=== PATIENT | male | born 1965 | race Caucasian/White ===

== ENCOUNTER 2019-01-23 05:59 | Emergency (ER) | payer MEDICARE, OTHER ==
[~2019-01-23] VITALS: Ht 185.4 cm; Wt 102.3 kg
[2019-01-23 06:01] VITALS: BP 147/96
[2019-01-23] MEDS ORDERED: diphenhydrAMINE 50 mg/ml inj IV ONE (06:15)
[2019-01-23] MEDS ORDERED: ketorolac trometh. 30mg/ml inj. IV ONE (06:15)
[2019-01-23] MEDS ORDERED: metoclopramide 5 mg/ml inj IV ONE (06:15)
== END 2019-01-23 09:12 | disposition home or self-care (01) ==
LOC: ER 05:59
DX: G43.909 Migraine, unspecified, not intractable, without status migrainosus (principal); Z88.0 Allergy status to penicillin
CPT/HCPCS: 96374; 96375; 99283; J1200; J1885; J2765

== ENCOUNTER 2020-09-30 17:29 | Emergency (ER) | payer MEDICARE, OTHER ==
[~2020-09-30] VITALS: Ht 188 cm; Wt 102.3 kg
[2020-09-30] MEDS ORDERED: PRED20TA PO (18:29)
[2020-09-30] MEDS ORDERED: ketorolac trometh inj. 60 MG/2 ML VIAL IM ONE (18:30)
[2020-09-30] MEDS ORDERED: CYCL-1 PO (18:57)
[2020-09-30 19:42] VITALS: BP 120/68
== END 2020-09-30 19:44 | disposition home or self-care (01) ==
LOC: ER 17:30
DX: G89.29 Other chronic pain (principal); M54.5 Low back pain; G43.909 Migraine, unspecified, not intractable, without status migrainosus; Z98.890 Other specified postprocedural states; Z88.0 Allergy status to penicillin; Z79.899 Other long term (current) drug therapy
CPT/HCPCS: 96372; 99283; J1885

== ENCOUNTER 2020-10-06 10:03 | Emergency (ER) | payer MEDICARE, OTHER ==
[~2020-10-06] VITALS: Ht 188 cm; Wt 102.3 kg
[~2020-10-06 10:03] MED LIST: CYCL-1 PO; PRED20TA PO
[2020-10-06 10:18] VITALS: BP 146/94
[2020-10-06] MEDS ORDERED: ketorolac trometh inj. 60 MG/2 ML VIAL IM ONE (11:40)
[2020-10-06] MEDS ORDERED: morphine 4 MG/ML inj SYRINge IM ONE (11:40)
[2020-10-06] MEDS ORDERED: ORPH100T2 PO (11:54)
[2020-10-06] MEDS ORDERED: OXYC-150 PO (11:54)
[2020-10-06] MEDS ORDERED: orphenadrine citrate 60mg/2ml inj. IM ONE (12:35)
[2020-10-06] MEDS ORDERED: DIAZ-351 PO (23:52)
[2020-10-07] MEDS ORDERED: NO HOME MEDS (18:24)
[2020-10-07] MEDS ORDERED: BACL-11 PO (20:17)
[2020-10-07] MEDS ORDERED: HYDR-3972 PO (20:17)
== END 2020-10-06 12:56 | disposition home or self-care (01) ==
LOC: ER 10:04
DX: M54.5 Low back pain (principal); G89.29 Other chronic pain; G43.909 Migraine, unspecified, not intractable, without status migrainosus; Z98.890 Other specified postprocedural states; Z88.0 Allergy status to penicillin; Z79.899 Other long term (current) drug therapy
CPT/HCPCS: 96372; 99284; J1885; J2270; J2360

== ENCOUNTER 2020-10-06 20:09 | Emergency (ER) | payer OTHER, MEDICARE ==
[~2020-10-06] VITALS: Ht 188 cm; Wt 102.5 kg
[~2020-10-06 20:09] MED LIST changes: +ORPH100T2 PO; +OXYC-150 PO
[2020-10-06 20:20] VITALS: BP 134/74
--- NOTE | 2020-10-06 21:04 | NUR ---
pt c/o lower back pain x1 week, pain has increased, difficulty ambulating due to pain, was here earlier today, [facility] will not [facility] given to pt, [facility], no loss of bowel or urine, h/o L3 to S1 fusion, waiting to be evaluated by provider
[2020-10-06] MEDS ORDERED: ketorolac trometh. 30mg/ml inj. IM ONE (22:05)
[2020-10-06] MEDS ORDERED: LIDOcaine 1% 30ml preserv. free vial IJ ONE (22:05)
[2020-10-06] MEDS ORDERED: diazepam 5mg tablet PO ONE (22:50)
[2020-10-06] MEDS ORDERED: DIAZ-351 PO (23:52)
[2020-10-07] MEDS ORDERED: NO HOME MEDS (18:24)
[2020-10-07] MEDS ORDERED: BACL-11 PO (20:17)
[2020-10-07] MEDS ORDERED: HYDR-3972 PO (20:17)
== END 2020-10-07 06:05 | disposition home or self-care (01) ==
LOC: ER 20:10
DX: S39.012A Strain of muscle, fascia and tendon of lower back, initial encounter (principal); G89.29 Other chronic pain; M62.830 Muscle spasm of back; G43.909 Migraine, unspecified, not intractable, without status migrainosus; Z98.890 Other specified postprocedural states; Z88.0 Allergy status to penicillin; Z79.899 Other long term (current) drug therapy; X58.XXXA Exposure to other specified factors, initial encounter; Y93.89 Activity, other specified; Y92.89 Other specified places as the place of occurrence of the external cause; Y99.8 Other external cause status
CPT/HCPCS: 20552; 74176; 96372; 99284; J1885; J2001

== ENCOUNTER 2020-10-13 21:03 | Emergency (ER) | payer OTHER, MEDICARE ==
[~2020-10-13] VITALS: Ht 188 cm; Wt 102.3 kg
[~2020-10-13 21:03] MED LIST changes: +BACL-11 PO; -CYCL-1 PO; -ORPH100T2 PO; -OXYC-150 PO; +OXYC1TAB17 PO; -PRED20TA PO
[2020-10-13] MEDS ORDERED: ketorolac trometh. 30mg/ml inj. IM ONE (23:05)
[2020-10-13] MEDS ORDERED: cyclobenzaprine 10mg tablet PO ONE (23:30)
[2020-10-13] MEDS ORDERED: morphine 4 MG/ML inj SYRINge IV ONE (23:30)
[2020-10-13] MEDS ORDERED: ondansetron/PF 4mg/2ml inj IV ONE (23:55)
--- NOTE | 2020-10-14 00:09 | NUR ---
Patient is resting comfortably, sleeping and snoring with eyes closed, no sign of discomfort. Provider updated.
--- NOTE | 2020-10-14 07:01 | NUR ---
MOTHER CALLED AND HIS COMING TO GET HIM
[2020-10-14 09:24] VITALS: BP 143/78
== END 2020-10-14 08:10 | disposition home or self-care (01) ==
LOC: ER 21:03
DX: G89.29 Other chronic pain (principal); M54.9 Dorsalgia, unspecified; M62.838 Other muscle spasm; G43.909 Migraine, unspecified, not intractable, without status migrainosus; Z98.890 Other specified postprocedural states; Z88.0 Allergy status to penicillin; Z79.899 Other long term (current) drug therapy
CPT/HCPCS: 96372; 96374; 99285; J1885; J2270